=== PATIENT | female | born 1970 ===

== ENCOUNTER 2018-07-12 12:44 | Emergency (ER) | payer MEDICARE ==
[2018-07-12 12:45] VITALS: BMI 23.4
--- NOTE | 2018-07-12 15:43 | ED PDOC ---
HPI: Psych/Substance Abuse Time Seen by Provider: 07/12/18 13:10 Chief Complaint (Nursing): Substance Abuse Chief Complaint (Provider): Heroin abuse History Per: Patient History/Exam Limitations: no limitations Modifying Factor(s): Narcotics Additional Complaint(s): 47 yo female with no medical problems brought in by EMS for evaluation. Pt states she smoked heroin this morning and then does not remember coming here. PT states she just finished detox program earlier this month and is disappointment with herself that she continues to use drugs. PT denies alcohol use today but states sghe does also drink sometimes. Pt asking for food in ER. Pt denies SI/HI. Pt states she has no pain and no complaints in ER. Past Medical History Reviewed: Historical Data, Nursing Documentation, Vital Signs Vital Signs: Last Vital Signs Temp 97.6 F 07/12/18 12:48 Pulse 106 H 07/12/18 12:48 Resp 10 L 07/12/18 12:48 BP 139/84 07/12/18 12:48 Pulse Ox 88 L 07/12/18 12:48 - Medical History PMH: Anemia, Back Problems, Bipolar Disorder, Depression, Fractures, Hepatitis (C) Denies: Diabetes, HIV, HTN, Chronic Kidney Disease, Seizures, Sexually Transmitted Disease - Family History Family History: States: Unknown Family Hx - Immunization History Hx Tetanus Toxoid Vaccination: No Hx Influenza Vaccination: No Hx Pneumococcal Vaccination: No - Home Medications Home Medications: Ambulatory Orders Medication Instructions Recorded Folic Acid 1 mg PO DAILY #14 tab 09/07/17 LORazepam [Ativan] 2 mg PO TID #12 tab 09/07/17 Multimineral/Multivitamin 1 tab PO 0800 #14 tab 09/07/17 [Therapeutic-M Tab] Thiamine [Vitamin B1 Tab] 100 mg PO DAILY #14 tab 09/07/17 traZODone [Desyrel] 100 mg PO HS #14 tab 09/07/17 - Allergies Allergies/Adverse Reactions: Allergies Allergy/AdvReac Type Severity Reaction Status Date / Time ketorolac AdvReac URTICARIA Verified 07/12/18 12:48 Review of Systems ROS Statement: Except As Marked, All Systems Reviewed And Found Negative Constitutional: Negative for: Fever, Chills - ECG O2 Sat by Pulse Oximetry: 88 Medical Decision Making Medical Decision Making: Pt with clear speech and steady gait in ER at 1545. Disposition - Clinical Impression Clinical Impression: Heroin abuse - Patient ED Disposition Is Patient to be Admitted: No - Disposition Disposition: Routine/Home Disposition Time: 16:00 Condition: GOOD Instructions: Drug Abuse and Drug Addiction (DC)
[2018-07-12 16:25] VITALS: BP 122/82; PULSE 92; RESP 18; TEMP 98.9; O2SAT 97
== END 2018-07-12 16:33 | disposition home or self-care (01) ==
LOC: H.ER 12:44
DX: F11.10 Opioid abuse, uncomplicated (principal); F31.9 Bipolar disorder, unspecified